=== PATIENT | male | born 1950 | race Caucasian/White ===

== ENCOUNTER 2025-01-11 06:25 | Day surgery (SDC) | payer OTHER ==
[2025-01-11] VITALS (11 sets, daily range): BP systolic 123–145; BP diastolic 53–84; PULSE 60–80; RESP 15–18; TEMP 97.2–98.2
[~2025-01-11] VITALS: Ht 172.7 cm; Wt 91.6 kg
[~2025-01-11 06:25] MED LIST: AMLO-257 PO; APIX5TAB PO; ASPI-1443 PO; ATOR40TA69 PO; CETI10TA87 PO; DONE10TA43 PO; ESOM40CA66 PO; FAMO40TA7 PO; FINA5TAB41 PO; FLUO20TA29 PO; FURO20TA4 PO; HYDR-3830 PO; HYDR-4068 PO; LOPE2CAP PO; ONDA-104 PO; SUCR1TAB2 PO; TAMS-55 PO
[2025-01-11] MEDS: 0.9%NACL 1000ML 1,000 ML IV ONE (07:54)
[2025-01-11] MEDS ORDERED: DONEPEZIL PO (08:17)
[2025-01-11] MEDS ORDERED: CALC60CR8 TP (08:20)
[2025-01-11] MEDS ORDERED: MULT-1192 PO (08:20)
[2025-01-11] MEDS ORDERED: CARB1DRO40 OU (08:20)
[2025-01-11] MEDS ORDERED: DEXL30CA3 PO (08:20)
[2025-01-11] MEDS ORDERED: FURO20TA4 PO (08:21)
[2025-01-11] MEDS ORDERED: LIDOCAINE HCL 1% 20 ML VIAL ONE (09:52)
== END 2025-01-11 11:09 | disposition home or self-care (01) ==
LOC: DAH 06:25 → ENDO 06:25
PROVIDERS: ATTEND Internal Medicine Gastroenterology
DX: R13.10 Dysphagia, unspecified (principal); K31.89 Other diseases of stomach and duodenum; K22.2 Esophageal obstruction; K44.9 Diaphragmatic hernia without obstruction or gangrene; K21.9 Gastro-esophageal reflux disease without esophagitis; K25.9 Gastric ulcer, unspecified as acute or chronic, without hemorrhage or perforation; I10 Essential (primary) hypertension; F41.9 Anxiety disorder, unspecified; F43.10 Post-traumatic stress disorder, unspecified; M81.0 Age-related osteoporosis without current pathological fracture; M19.90 Unspecified osteoarthritis, unspecified site; Z96.659 Presence of unspecified artificial knee joint; Z90.49 Acquired absence of other specified parts of digestive tract; Z96.641 Presence of right artificial hip joint; Z98.1 Arthrodesis status; Z79.01 Long term (current) use of anticoagulants; Z79.899 Other long term (current) drug therapy
CPT/HCPCS: 43249; 43239; J7030; J2704; C1726; A4620; A4215; J3490